=== PATIENT | female | born 2000 | race Caucasian/White ===

== ENCOUNTER → 2021-04-13 | Outpatient (CLI) | payer OTHER | LOC: HEART CORB 08:30 | DX: Z02.5 Encounter for examination for participation in sport (principal); I08.1 Rheumatic disorders of both mitral and tricuspid valves; Z86.79 Personal history of other diseases of the circulatory system; Z98.890 Other specified postprocedural states; Z87.74 Personal history of (corrected) congenital malformations of heart and circulatory system | CPT/HCPCS: 93306 ==